=== PATIENT | female | born 1980 | race Caucasian/White ===

== ENCOUNTER 2017-12-14 10:38 | Day surgery (SDC) | payer OTHER ==
[2017-12-09 12:06] VITALS: BMI 23.6
[2017-12-14] MEDS ORDERED: PROPOFOL 20 ML ONE (12:03)
[2017-12-14 12:42] VITALS: TEMP 98.2
[2017-12-14 13:14] VITALS: BP 106/58; PULSE 56
--- NOTE | 2017-12-16 15:56 | PATH ---
Surgical Pathology Report Patient Name: RICARDO ESQUIVEL [facility]. Rec. #: [id number] /Age/Gender: 1980 (Age: 37) / F Account: [id number] Location: [facility] Taken: 12/14/2017 Received: 12/14/2017 Reported: 12/16/2017 Physicians: Denton Alan M.D. Specimen(s) Received A: BX DUODENUM B: BX ANTRUM C: BX ESOPHAGUS Clinical History GERD Postoperative diagnosis: Gastritis Final Diagnosis A. DUODENUM, BIOPSY: DUODENAL MUCOSA WITH NO SIGNIFICANT PATHOLOGIC FINDINGS. NO HISTOLOGIC EVIDENCE OF CELIAC DISEASE. B. ANTRUM, BIOPSY: GASTRIC MUCOSA WITH MILD CHRONIC GASTRITIS. IMMUNOSTAIN FOR H. PYLORI IS NEGATIVE. NEGATIVE FOR INTESTINAL METAPLASIA. C. ESOPHAGUS, BIOPSY: ESOPHAGEAL MUCOSA WITH NO DIAGNOSTIC ABNORMALITIES. NO HISTOLOGIC EVIDENCE OF EOSINOPHILIC ESOPHAGITIS. Electronically Signed Loan Vazquez M.D. Gross Description A. Received in formalin, labeled "biopsy duodenum" are 3 han, irregular portions of soft tissue ranging from 0.3-0.4 cm. in greatest dimension. The specimens are submitted in toto in one cassette. B. Received in formalin, labeled "biopsy antrum" are 2 han, irregular portions of soft tissue measuring 0.3 and 0.5 cm. in greatest dimension. The specimens are submitted in toto in one cassette. C. Received in formalin, labeled "biopsy esophagus" is a han, irregular portion of soft tissue measuring 0.4 cm. in greatest dimension. The specimen is submitted in toto in one cassette. 12/15/201712/15/2017
== END 2017-12-14 13:17 | disposition home or self-care (01) ==
LOC: FASU-ENDO 10:38
PROVIDERS: ATTEND Internal Medicine Gastroenterology
PROC: 0DB68ZX Excision of Stomach, Via Natural or Artificial Opening Endoscopic, Diagnostic (ICD-10-PCS; 2017-12-14)
PROC: 0DB58ZX Excision of Esophagus, Via Natural or Artificial Opening Endoscopic, Diagnostic (ICD-10-PCS; 2017-12-14)
PROC: 0DB98ZX Excision of Duodenum, Via Natural or Artificial Opening Endoscopic, Diagnostic (ICD-10-PCS; principal; 2017-12-14 12:14)
DX: K29.50 Unspecified chronic gastritis without bleeding (principal); R10.13 Epigastric pain
CPT/HCPCS: 84703; 88305-TC; 88342-TC